=== PATIENT | female | born 1955 | race Caucasian/White ===

== ENCOUNTER 2017-12-18 17:28 | Inpatient (IN) | payer BC ==
[~2017-12-18 17:28] MED LIST: GLYCOPYRROLATE INJ 0.4 MG/2 ML VIAL ONE; LIDOCAINE 2% INJ-PF (20 MG/ML) 2 ML AMPUL ONE; PHENYLEPHRINE HCL INJ/PF 10 MG/1 ML SDV ONE; SUCCINYLCHOLINE CHLORIDE INJ 200 MG/10 ML VIAL ONE
[2017-12-18] MEDS ORDERED: AMPICILLIN SOD/SULBACTAM 3 GM VIAL IV ONE (17:33)
--- NOTE | 2017-12-18 17:33 | ER Document Report ---
ED Extremity Problem, Lower - General Stated Complaint: FALL,ANKLE INJURY Time Seen by Provider: 12/18/17 17:31 Notes: 62-year-old female. Tripped going down stairs. Twisted her ankle. Has a fracture dislocation obvious open fracture of the right ankle. Last food was approximately 2 hours prior to fall. Has been drinking today. Does not smoke. Previous history is consistent with and ovarian cyst. Patient denies any other injuries at this time. Did not fall head over heels simply twisted her ankle and fell down. - HPI Location: Ankle Where: Home Onset/Duration: Sudden Pain Level: 5 Context: Fell, Laceration - Related Data Allergies/Adverse Reactions: No Known Allergies Allergy (Unverified 12/18/17 17:41) Past Medical History - General Information source: Patient - Social History Smoking Status: Never Smoker Frequency of alcohol use: None Drug Abuse: None Lives with: Family Family History: Reviewed & Not Pertinent - Medical History Medical History: Negative Past Surgical History: Reports: Hx Section - Immunizations Immunizations up to date: No Review of Systems - Review of Systems Constitutional: No symptoms reported EENT: No symptoms reported Cardiovascular: No symptoms reported Respiratory: No symptoms reported Gastrointestinal: No symptoms reported Genitourinary: No symptoms reported Female Genitourinary: No symptoms reported Musculoskeletal: See HPI, Joint pain Skin: See HPI, Other - Laceration Hematologic/Lymphatic: No symptoms reported Neurological/Psychological: No symptoms reported Physical Exam - Vital signs Vitals: Pulse Resp BP Pulse Ox 101 H 20 170/80 H 98 12/18/17 17:41 12/18/17 17:41 12/18/17 17:41 12/18/17 17:41 Interpretation: Tachycardic - General General appearance: Appears well, Alert - HEENT Head: Normocephalic, Atraumatic Eyes: Normal Pupils: PERRL - Respiratory Respiratory status: No respiratory distress Chest status: Nontender Breath sounds: Normal Chest palpation: Normal - Cardiovascular Rhythm: Tachycardia Heart sounds: Normal auscultation Murmur: No - Abdominal Inspection: Normal Distension: No distension Bowel sounds: Normal Tenderness: Nontender Organomegaly: No organomegaly - Back Back: Normal, Nontender - Extremities General upper extremity: Normal inspection, Nontender, Normal color, Normal ROM , Normal temperature General lower extremity: Other - Patient has good pulses of the right lower extremity dorsalis pedis and posterior tibialis. There is an obvious 2 cm laceration on the medial aspect of the right ankle with talus pushing underneath the skin. Tenderness medial and laterally as well as posteriorly. Obvious deformity peer. No: Tong's sign - Neurological Neuro grossly intact: Yes Cognition: Normal Orientation: AAOx4 Chayo Coma Scale Eye Opening: Spontaneous Stanton Coma Scale Verbal: Oriented Stanton Coma Scale Motor: Obeys Commands Chayo Coma Scale Total: 15 Speech: Normal Motor strength normal: LUE, RUE, LLE, RLE Sensory: Normal - Psychological Associated symptoms: Normal affect, Normal mood - Skin Skin Temperature: Warm Skin Moisture: Dry Skin Color: Normal Course - Re-evaluation Re-evalutation: 12/18/17 18:58 Laboratory 12/18/17 12/18/17 12/18/17 17:33 17:33 17:33 WBC 12.2 H RBC 4.42 Hgb 13.8 Hct 40.9 MCV 93 MCH 31.3 MCHC 33.8 RDW 12.7 Plt Count 251 Seg Neutrophils % 71.2 Lymphocytes % 20.0 Monocytes % 7.3 Eosinophils % 1.0 Basophils % 0.5 Absolute Neutrophils 8.7 H Absolute Lymphocytes 2.5 Absolute Monocytes 0.9 Absolute Eosinophils 0.1 Absolute Basophils 0.1 PT 13.2 INR 0.94 APTT 25.8 Sodium 143.3 Potassium 4.6 Chloride 102 Carbon Dioxide 26 Anion Gap 15 BUN 14 Creatinine 0.62 Est GFR ( Amer) > 60 Est GFR (Non-Af Amer) > 60 Glucose 119 H Calcium 8.9 Total Bilirubin 0.3 Direct Bilirubin 0.2 Neonat Total Bilirubin Not Reportable Neonat Direct Bilirubin Not Reportable Neonat Indirect Bili Not Reportable AST 38 H ALT 52 Alkaline Phosphatase 86 Total Protein 7.4 Albumin 4.9 Ankle X-Ray 12/18/17 17:32 IMPRESSION: There is evidence of right posterior malleolar and medial malleolar fracture with comminuted fracture distal right fibula. Posterolateral dislocation of the right ankle. Plantar calcaneal bone spur. Patient has open comminuted fracture of the ankle. Consulted Dr. No who will be in to see patient shortly. Patient getting IV pain medication. Patient received antibiotics and tetanus update. IV fluids. Zofran. - Vital Signs Vital signs: Temp Pulse Resp BP Pulse Ox 101 H 20 170/80 H 98 12/18/17 17:41 12/18/17 17:41 12/18/17 17:41 12/18/17 17:41 - Laboratory Result Diagrams: 12/18/17 17:33 12/18/17 17:33 Laboratory results interpreted by me: 12/18/17 12/18/17 17:33 17:33 WBC 12.2 H Absolute Neutrophils 8.7 H Glucose 119 H AST 38 H Discharge - Discharge Clinical Impression: Fracture of ankle, trimalleolar, right, open Qualifiers: Encounter type: initial encounter Open fracture type: open type I or II Qualified Code(s): S82.851B - Displaced trimalleolar fracture of right lower leg , initial encounter for open fracture type I or II Condition: Good Disposition: ADMITTED INPATIENT Unit Admitted: Surgical Floor - Umesh Malhotra Referrals: ALEXA HORN PA-C [Primary Care Provider] - Follow up as needed
[2017-12-18 17:50] LABS: ABSOLUTE BASOPHILS # (AUTO) 0.1 10^3/uL (0.0-0.2); ABSOLUTE EOSINOPHILS # (AUTO) 0.1 10^3/uL (0.0-0.6); ABSOLUTE LYMPHOCYTES (AUTO) 2.5 10^3/uL (0.5-4.7); ABSOLUTE MONOCYTES (AUTO) 0.9 10^3/uL (0.1-1.4); ABSOLUTE NEUT (AUTO) 8.7 10^3/uL (1.7-8.2); BASOPHILS % (AUTO) 0.5 % (0-2); HEMATOCRIT 40.9 % (36.0-47.0); HEMOGLOBIN 13.8 g/dL (12.0-15.5); MEAN CORPUSCULAR HEMOGLOBIN 31.3 pg (27.0-33.4); MEAN CORPUSCULAR HGB CONC 33.8 g/dL (32.0-36.0); MEAN CORPUSCULAR VOLUME 93 fl (80-97); MONOCYTES % (AUTO) 7.3 % (3-13); PLATELET COUNT 251 10^3/uL (150-450); RED BLOOD COUNT 4.42 10^6/uL (3.72-5.28); RED CELL DISTRIBUTION WIDTH 12.7 % (11.5-14.0); SEGMENTED NEUTROPHILS % (AUTO) 71.2 % (42-78); TOTAL CELLS COUNTED % (AUTO) 100 %; WHITE BLOOD COUNT 12.2 10^3/uL (4.0-10.5)
[2017-12-18] MEDS ORDERED: FENTANYL CITRATE INJ/PF 100 MCG/2 ML AMPUL ONE ×2 (18:01→20:02)
--- NOTE | 2017-12-18 18:04 | RADIOLOGY REPORT (SQ) ---
EXAM DESCRIPTION: ANKLE RIGHT AP/LATERAL COMPLETED DATE/TIME: 12/18/2017 5:50 pm REASON FOR STUDY: fall COMPARISON: None. NUMBER OF VIEWS: Three views. TECHNIQUE: AP, lateral, and oblique radiographic images acquired of the right ankle. LIMITATIONS: None. FINDINGS: There is evidence of a comminuted fracture of the distal right fibula with angulation conv ex anteriorly at the fracture site and overlap proximal distal fracture fragments. There is evidence of a fracture of the right lateral malleolus and posterior malleolus with posterolateral dislocation of right ankle. Enthesophyte for Achilles attachment. Plantar calcaneal bone spur. IMPRESSION: There is evidence of right posterior malleolar and medial malleolar fracture with commin uted fracture distal right fibula. Posterolateral dislocation of the right ankle. Plantar calcaneal bone spur. TECHNICAL DOCUMENTATION: JOB ID: [id number] [employer]- All Rights Reserved Reading location - IP/workstation name: [email or web address]
[2017-12-18] MEDS ORDERED: FENTANYL CITRATE INJ/PF 100 MCG/2 ML AMPUL IV ONE (18:08)
[2017-12-18 18:12] LABS: ALANINE AMINOTRANSFERASE 52 U/L (9-52); ALBUMIN 4.9 g/dL (3.5-5.0); ALKALINE PHOSPHATASE 86 U/L (38-126); ANION GAP 15 (5-19); ASPARTATE AMINO TRANSFERASE 38 U/L (14-36); BILIRUBIN,DIRECT 0.2 mg/dL (0.0-0.4); BILIRUBIN,TOTAL 0.3 mg/dL (0.2-1.3); BLOOD UREA NITROGEN 14 mg/dL (7-20); CALCIUM 8.9 mg/dL (8.4-10.2); CARBON DIOXIDE 26 mmol/L (22-30); CHLORIDE 102 mmol/L (98-107); GLUCOSE 119 mg/dL (75-110); INTERNATIONAL RATION (INR) 0.94; PARTIAL THROMBOPLASTIN TIME 25.8 SEC (23.5-35.8); POTASSIUM 4.6 mmol/L (3.6-5.0); PROTHROMBIN TIME 13.2 SEC (11.4-15.4); SODIUM 143.3 mmol/L (137-145); TOTAL PROTEIN 7.4 g/dL (6.3-8.2)
[2017-12-18] MEDS ORDERED: DIPH/PERTUSS(ACELL)/TETANUS VAC/PF 0.5 ML SYR (>=10YO) IM ONE (18:54)
[2017-12-18] MEDS ORDERED: NORMAL SALINE 1000 ML 1,000 ML IV ONE (18:56)
[2017-12-18] MEDS ORDERED: ONDANSETRON HCL INJ/PF 4 MG/2 ML SDV IV ONE (18:56)
[2017-12-18] MEDS ORDERED: FENTANYL CITRATE INJ/PF 100 MCG/2 ML AMPUL IV SCH (19:00)
--- NOTE | 2017-12-18 19:43 | PDOC H&P ---
History of Present Illness Admission Date/PCP: ALEXA HORN PA-C Patient complains of: Right ankle injury History of Present Illness: DARRYL DUVALL is a 62 year old female who tripped going downstairs. Patient had notable deformity of her right lower extremity with an open wound. She was brought to the emergency room where x-rays demonstrated open fracture dislocation of the ankle. Patient immediately received antibiotics the wound was cleansed and a soft wet-to-dry dressing placed. Patient states her pain has improved after pain medication but has considerable pain with any attempted motion. Notes tingling along the tips of the toes. Pain 5/5. Past Medical History Psychiatric Medical History: Reports: Depression Past Surgical History Past Surgical History: Reports: Section Social History Lives with: Family Smoking Status: Never Smoker Family History Family History: Reviewed & Not Pertinent Parental Family History Reviewed: No Children Family History Reviewed: No Sibling(s) Family History Reviewed.: No Medication/Allergy Allergies/Adverse Reactions: No Known Allergies Allergy (Unverified 12/18/17 17:41) Review of Systems Constitutional: ABSENT: chills, fever(s), headache(s), weight gain, weight loss Eyes: ABSENT: visual disturbances Ears: ABSENT: hearing changes Nose, Mouth, and Throat: PRESENT: other - History of allergies Cardiovascular: ABSENT: chest pain, dyspnea on exertion, edema, orthropnea, palpitations Respiratory: ABSENT: cough, hemoptysis Gastrointestinal: ABSENT: abdominal pain, constipation, diarrhea, hematemesis, hematochezia, nausea, vomiting Genitourinary: ABSENT: dysuria, hematuria Musculoskeletal: PRESENT: as per HPI Integumentary: ABSENT: rash, wounds Neurological: ABSENT: abnormal gait, abnormal speech, confusion, dizziness, focal weakness, syncope Psychiatric: ABSENT: anxiety, depression, homidical ideation, suicidal ideation Endocrine: ABSENT: cold intolerance, heat intolerance, menstrual abnormalities, polydipsia, polyuria Hematologic/Lymphatic: ABSENT: easy bleeding, easy bruising, lymphadenopathy Physical Exam Vital Signs: Temp Pulse Resp BP Pulse Ox 101 H 20 170/80 H 98 12/18/17 17:41 12/18/17 17:41 12/18/17 17:41 12/18/17 17:41 Intake & Output 12/17/17 12/18/17 12/19/17 06:59 06:59 06:59 Weight 79.1 kg General appearance: PRESENT: no acute distress, well-developed, well-nourished Head exam: PRESENT: atraumatic, normocephalic Eye exam: PRESENT: conjunctiva pink, EOMI, PERRLA. ABSENT: scleral icterus Ear exam: PRESENT: normal external ear exam Mouth exam: PRESENT: moist, tongue midline Neck exam: PRESENT: full ROM. ABSENT: carotid bruit, JVD, lymphadenopathy, thyromegaly Cardiovascular exam: PRESENT: RRR. ABSENT: diastolic murmur, rubs, systolic murmur Pulses: PRESENT: normal dorsalis pedis pul, +2 pedal pulses bilateral Vascular exam: PRESENT: normal capillary refill GI/Abdominal exam: PRESENT: normal bowel sounds, soft. ABSENT: distended, guarding, mass, organolmegaly, rebound, tenderness Rectal exam: PRESENT: deferred Musculoskeletal exam: PRESENT: other - Right ankle: Exposed bone medially with 6 cm transverse laceration. No gross contamination. Dorsalis pedis pulse one plus. Cap refill less than 2 seconds. Hypoesthesia along the dorsum of the foot. Intact flexion extension of the toes. Neurological exam: PRESENT: alert, awake, oriented to person, oriented to place , oriented to time, oriented to situation, CN II-XII grossly intact. ABSENT: motor sensory deficit Psychiatric exam: PRESENT: appropriate affect, normal mood. ABSENT: homicidal ideation, suicidal ideation Skin exam: PRESENT: dry, intact, warm. ABSENT: cyanosis, rash Results Laboratory Results: 12/18/17 17:33 12/18/17 17:33 12/18/17 12/18/17 17:33 17:33 WBC 12.2 H RBC 4.42 Hgb 13.8 Hct 40.9 MCV 93 MCH 31.3 MCHC 33.8 RDW 12.7 Plt Count 251 Seg Neutrophils % 71.2 Lymphocytes % 20.0 Monocytes % 7.3 Eosinophils % 1.0 Basophils % 0.5 Absolute Neutrophils 8.7 H Absolute Lymphocytes 2.5 Absolute Monocytes 0.9 Absolute Eosinophils 0.1 Absolute Basophils 0.1 Sodium 143.3 Potassium 4.6 Chloride 102 Carbon Dioxide 26 Anion Gap 15 BUN 14 Creatinine 0.62 Est GFR ( Amer) > 60 Est GFR (Non-Af Amer) > 60 Glucose 119 H Calcium 8.9 Total Bilirubin 0.3 AST 38 H ALT 52 Alkaline Phosphatase 86 Total Protein 7.4 Albumin 4.9 Impressions: Ankle X-Ray 12/18/17 17:32 IMPRESSION: There is evidence of right posterior malleolar and medial malleolar fracture with comminuted fracture distal right fibula. Posterolateral dislocation of the right ankle. Plantar calcaneal bone spur. Status: Image reviewed by me - I have reviewed patient's radiographs demonstrate trimalleolar fracture dislocation of the right ankle with small medial malleolar fragment and distal fibula fracture. Assessment & Plan - Diagnosis (1) Fracture of ankle, trimalleolar, right, open Qualifiers: Encounter type: initial encounter Open fracture type: open type I or II Qualified Code(s): S82.851B - Displaced trimalleolar fracture of right lower leg , initial encounter for open fracture type I or II Is this a current diagnosis for this admission?: Yes Plan: Patient sustained a grade II open fracture dislocation of her ankle. Today we discussed treatment options I recommended urgent operative intervention which includes irrigation and debridement of the right ankle with open reduction internal fixation versus placement of external fixator. Risks and benefits of the surgical procedure have been explained to the patient specific risks including infection which patient is high risk given the open nature, posttraumatic arthritis, postoperative pain, neurovascular injury and need for future surgical intervention. Risks and benefits have been explained, patient has verbalized understanding consented for the procedure. Patient will be admitted for 72 hours and received IV antibiotics. Pending intraoperative findings will proceed with open reduction internal fixation versus external fixator. Patient understands if external fixator is placed she will require future surgical intervention for definitive fixation.
[2017-12-18] MEDS ORDERED: MIDAZOLAM 2 MG/2 ML INJ ONE (20:02)
[2017-12-18] MEDS ORDERED: ACETAMINOPHEN 100 ML IV ONE (20:03)
[2017-12-18] MEDS ORDERED: PROPOFOL INJ 200 MG/20 ML VIAL IV ONE (20:03)
[2017-12-18] MEDS ORDERED: EPHEDRINE SULFATE INJ 50 MG/1 ML AMPULE ONE (21:12)
[2017-12-18] MEDS ORDERED: BUPIVACAINE HCL 0.5 % INJ/PF 30 ML SDV ONE (21:32)
[2017-12-18] MEDS ORDERED: BACITRACIN INJ 50,000 UNIT VIAL ONE (21:34)
[2017-12-18] MEDS ORDERED: FENTANYL CITRATE INJ/PF 100 MCG/2 ML AMPUL IV PRN ×3 (21:39)
[2017-12-18] MEDS ORDERED: DIPHENHYDRAMINE HCL 50 MG/ML VIAL IV PRN (21:39)
[2017-12-18] MEDS ORDERED: PROMETHAZINE HCL INJ 25 MG/1 ML VIAL IV PRN (21:39)
[2017-12-18] MEDS ORDERED: MORPHINE SULFATE 10 MG/ML INJ ONE (21:53)
--- NOTE | 2017-12-18 22:07 | EKG REPORT ---
SEVERITY:- ABNORMAL ECG - SINUS TACHYCARDIA VENTRICULAR TRIGEMINY LEFT AXIS DEVIATION MINIMAL ST DEPRESSION : Confirmed by: Ray Herring MD 18-Dec-2017 22:06:52
[2017-12-18] MEDS ORDERED: RINGERS SOLUTION,LACTATED 1,000 ML IV PRN (22:12)
[2017-12-18] MEDS ORDERED: MAG HYDROX/AL HYDROX/SIMETH SUSP 30 ML UDCUP PO PRN (22:12)
--- NOTE | 2017-12-18 22:37 | RADIOLOGY REPORT (SQ) ---
EXAM DESCRIPTION: ANKLE RIGHT COMPLETE COMPLETED DATE/TIME: 12/18/2017 10:01 pm REASON FOR STUDY: ORIF RT ANKLE FX COMPARISON: 12/18/2017 FLUOROSCOPY TIME: 1.0 minutes 7 images saved to PACS. TECHNIQUE: Intra-operative images acquired during surgical procedure to evaluate progress. NUMBER OF IMAGES: 7 LIMITATIONS: None. FINDINGS: Multiple fluoroscopic spot images of the ankle demonstrate surgical changes consistent wit h open reduction, internal fixation of previously diagnosed right ankle fractures. Images are submit long for administrative purposes only. Please refer to the operative report for full details regardin g this surgery. IMPRESSION: IMAGE(S) OBTAINED DURING PROCEDURE. COMMENT: Quality ID [id number]: Final reports for procedures using fluoroscopy that document radiation exp osure indices, or exposure time and number of fluorographic images (if radiation exposure indices are not available) Please consult full operative report of the attending physician for description of the procedure. TECHNICAL DOCUMENTATION: JOB ID: [id number] [employer] All Rights Reserved Reading location - IP/workstation name: [email or web address]
--- NOTE | 2017-12-18 22:37 | Operative Report ---
Operative Report DATE OF SURGERY: 12/18/17 PREOPERATIVE DIAGNOSIS: Right fracture dislocation trimalleolar ankle fracture grade II open POSTOPERATIVE DIAGNOSIS: Same OPERATION: Irrigation and debridement grade II open fracture dislocation right ankle. Open reduction internal fixation medial/lateral malleoli. Syndesmotic fixation right ankle SURGEON: CELINA MATTHEW ANESTHESIA: GA COMPLICATIONS: None ESTIMATED BLOOD LOSS: Minimal PROCEDURE: Indication for above procedure: 62-year-old female who sustained a fall down her steps. She had a notable deformity with open wound. She was brought to the emergency room where she was found to have a open fracture dislocation of her ankle. Patient received antibiotics in the emergency room the wound was cleansed and a wet-to-dry dressing placed. I discussed treatment options with the patient given the severity of her injury decision was made to proceed with operative intervention which included ORIF versus external fixation. All questions were answered risks and benefits were explained patient verbalized understanding consented for the procedure. Procedure In Detail: Patient was seen and evaluated in the preoperative holding area. The RIGHT lower extremity was initialized and marked. Patient received Unasyn for bacterial prophylaxis in the emergency room. Patient was taken back to the operative room where transferred to the operative table and placed under general anesthesia. Once they were adequately anesthetized a nonsterile tourniquet was placed on the lower extremity. A surgical team debriefing was performed ensuring all instrumentation was available, the surgical procedure was discussed with possible concerns reviewed. I prescribed with Betadine was performed to the lower extremity. The lower extremity was prepped with chlorhexidine and alcohol and draped in a sterile fashion. A timeout was done identifying correct patient, procedure and extremity everyone in attendance agree with this and verbalized no concerns. The extremity was exsanguinated the tourniquet was inflated to 300 mmHg. Medial wound was then irrigated with pulse lavage bacitracin and then gravity irrigation. Exploration demonstrated exposed cancellus bone of the medial malleolus medial malleolar fragment was approximately 1 cm x 1 cm. The skin edges were then debrided any necrotic or nonviable skin removed. The exposed tibia was then curetted and any nonviable bone excised. Given the acuity of patient's injury, minimal swelling and no evidence of comorbidities decision was made to proceed with definitive fixation. Longitudinal skin incision was made along the lateral malleolus/distal fibula blunt dissection was performed proximally and the superficial peroneal nerve was identified and protected. I then carefully elevated soft tissue from the fracture site. The fracture was then reduced under direct visualization. Interfragmentary screw was placed obtaining good interfragmentary compression. A [place] one third tubular plate was then secured proximally and distally C arm fluoroscopy demonstrated [place] of fibular length and appropriate placement of the plate. I then completed plate fixation and distally. A cotton test was then performed which demonstrated tibia-fibula clear space widening thus decision was made to proceed with syndesmotic fixation. Aiming from a posterior to anterior direction at 45 I placed a 3.5 mm fully threaded cortex screw while maintaining syndesmotic reduction. A second 3.5 mm fully threaded cortex screw was placed to provide further stability. No syndesmotic screws obtained 4 cortices of fixation. There is no evidence of syndesmotic widening and a negative cotton test after syndesmotic fixation. C- arm fluoroscopy was obtained confirming reduction of the syndesmosis and adequate placement of the syndesmotic screws coplanar with the fibula and tibia. Given the size of patient's small medial malleolar fragment I decided to proceed with single screw fixation I do not feel tension band fixation was an appropriate choice given patient's open wound and possibly higher risk of hardware infection. The small medial malleolar fragment was then held reduced and secured with 2 threaded K wire. I then placed a partially threaded 4.0 mm interfragmentary screw was provided optimal fixation of the fragment. Once fixation was complete there is no evidence of tibia-fibula clear space widening or medial space widening with external rotation or cotton test. No evidence of joint subluxation throughout range of motion. The wounds were once again copiously irrigated with normal saline. Medial wound was closed with interrupted 3-0 nylon suture small area was left open. Subcutaneous tissues were closed laterally with 3-0 Vicryl suture. Skin was closed with tino. 20 cc of 0.5% Marcaine without epinephrine was injected for postoperative pain control. Patient was placed in a posterior plaster splint maintaining neutral dorsiflexion. Tourniquet was then deflated. Patient had good peripheral perfusion of her digits. Sponge counts, instrument counts, needle counts counts were correct. Patient was then awoken from anesthesia. Transferred from the operating room table to the operating room stretcher. There was no intraoperative complications patient tolerated procedure well stable to PACU. Postoperative plan: Patient will be admitted for 72 hours of IV antibiotics given the open fracture. She was started on Xarelto for DVT prophylaxis. Will maintain nonweightbearing for 3 months given syndesmotic fixation will discuss possible hardware removal 3 months postoperative. Patient will follow-up in 1 week for wound check and likely transition to a pneumatic walking boot.
[2017-12-19] MEDS ORDERED: CEFAZOLIN INJ 1 GM VIAL ONE (00:24)
[2017-12-19] MEDS ORDERED: ACETAMINOPHEN 100 ML IV ONE ×2 (00:28→05:27)
[2017-12-19] MEDS: CEFAZOLIN 2 GM/D5W RTU 2 GM/50 ML RTUPB IV SCH ×4 (00:47→17:23)
[2017-12-19] MEDS: FENTANYL CITRATE INJ/PF 100 MCG/2 ML AMPUL IV PRN ×3 (01:39→09:38)
[2017-12-19 04:40] LABS: CREATINE KINASE MB 1.24 ng/mL (<4.55); TROPONIN I < 0.012 ng/mL
[2017-12-19] MEDS: LANSOPRAZOLE 30 MG TAB.RAP.DR PO SCH (06:37)
--- NOTE | 2017-12-19 07:02 | PDOC CONSULTATION ---
Consultation Consult Date: 12/19/17 Attending physician:: ROSSY LOBO Consult reason:: PVCs History of Present Illness Admission Date/PCP: 12/18/17 19:52 ALEXA HORN PA-C History of Present Illness: DARRYL DUVALL is a 62 year old female who tripped going downstairs. In the OR she is noted to have PVCs. Patient had notable deformity of her right lower extremity with an open wound. She was brought to the emergency room where x-rays demonstrated open fracture dislocation of the ankle. Patient immediately received antibiotics the wound was cleansed and a soft wet-to-dry dressing placed. Patient states her pain has improved after pain medication but has considerable pain with any attempted motion. Notes tingling along the tips of the toes. Pain 5/5. Past Medical History GI Medical History: Reports: Gastroesophageal Reflux Disease Past Surgical History Past Surgical History: Reports: Section Social History Information Source: [facility] Records Lives with: Family Smoking Status: Former Smoker Last Time Smoked: 1985 Frequency of Alcohol Use: Heavy Hx Recreational Drug Use: No Hx Prescription Drug Abuse: No - Advance Directive Resuscitation Status: Full Code Family History Family History: Reviewed & Not Pertinent Parental Family History Reviewed: No Children Family History Reviewed: No Sibling(s) Family History Reviewed.: No Medication/Allergy Home Medications: Citalopram Hydrobromide [Celexa 20 mg Tablet] 20 mg PO DAILY 12/18/17 Clindamycin HCl 300 mg PO Q8 #21 capsule 12/18/17 Esomeprazole Magnesium [Nexium 24Hr] 20 mg PO DAILY 12/18/17 Mv,Calcium,Min/Iron/Folic/Vitk [Multi For Her Tablet] 1 tab PO DAILY 12/18/17 Oxycodone HCl/Acetaminophen [Percocet 7.5-325 mg Tablet] 1 - 2 tab PO ASDIR PRN #40 tab 12/18/17 Rivaroxaban [Xarelto 10 mg Tablet] 10 mg PO QHS #17 tablet 12/18/17 Allergies/Adverse Reactions: No Known Allergies Allergy (Unverified 12/18/17 17:41) Physical Exam Vital Signs: Temp Pulse Resp BP Pulse Ox 99.0 F 101 H 16 125/69 96 12/19/17 03:28 12/19/17 03:28 12/19/17 03:28 12/19/17 03:28 12/19/17 03:28 Intake & Output 12/17/17 12/18/17 12/19/17 11:59 11:59 11:59 Intake Total 4898 Output Total 3220 Balance 1678 Results Laboratory Results: 12/19/17 00:30 Magnesium 1.7 12/19/17 12/19/17 00:30 00:30 Creatine Kinase 146 H CK-MB (CK-2) 1.24 Troponin I < 0.012 Impressions: Ankle X-Ray 12/18/17 17:32 IMPRESSION: There is evidence of right posterior malleolar and medial malleolar fracture with comminuted fracture distal right fibula. Posterolateral dislocation of the right ankle. Plantar calcaneal bone spur. Assessment & Plan - Diagnosis (1) PVCs (premature ventricular contractions) Is this a current diagnosis for this admission?: Yes Plan: PVCs noted in the OR, reevaluation of her EKG reveal PVCs occurring with trigeminy which is benign. Evaluation of cardiac enzymes and electrolytes are unremarkable. Benign condition, no further workup. Thank you for the opportunity. - Time Time Spent: 30 to 50 Minutes
[2017-12-19 07:57] LABS: HEMATOCRIT 33.7 % (36.0-47.0); MEAN CORPUSCULAR HEMOGLOBIN 31.4 pg (27.0-33.4); MEAN CORPUSCULAR VOLUME 92 fl (80-97); PLATELET COUNT 189 10^3/uL (150-450); RED BLOOD COUNT 3.65 10^6/uL (3.72-5.28); RED CELL DISTRIBUTION WIDTH 12.6 % (11.5-14.0); WHITE BLOOD COUNT 12.1 10^3/uL (4.0-10.5)
[2017-12-19 08:20] LABS: HEMOGLOBIN 11.5 g/dL (12.0-15.5)
[2017-12-19 08:22] LABS: ANION GAP 9 (5-19); BLOOD UREA NITROGEN 10 mg/dL (7-20); CALCIUM 8.1 mg/dL (8.4-10.2); CARBON DIOXIDE 27 mmol/L (22-30); CHLORIDE 102 mmol/L (98-107); CREATINE KINASE 244 U/L (30-135); GLUCOSE 90 mg/dL (75-110); POTASSIUM 4.4 mmol/L (3.6-5.0); SODIUM 138.3 mmol/L (137-145)
[2017-12-19 08:37] LABS: TROPONIN I < 0.012 ng/mL
--- NOTE | 2017-12-19 09:26 | EKG REPORT ---
SEVERITY:- OTHERWISE NORMAL ECG - SINUS TACHYCARDIA LEFT AXIS DEVIATION : Confirmed by: Ray Herring MD 19-Dec-2017 09:26:22
[2017-12-19] MEDS: PREGABALIN 75 MG CAPSULE PO SCH ×2 (09:39→17:17)
[2017-12-19] MEDS: SENNOSIDES/DOCUSATE 8.6-50 MG 1 EACH TABLET PO SCH ×2 (09:39→17:18)
[2017-12-19] MEDS: PRENATAL VITAMIN W DHA CAPSULE PO SCH (09:40)
--- NOTE | 2017-12-19 10:55 | PDOC PROGRESS REPORT ---
Subjective Progress Note for:: 12/19/17 Subjective:: 62-year-old white female postop day 0 open reduction internal fixation right open trimalleolar ankle fracture dislocation. Patient lying comfortably in hospital bed this morning with right lower extremity elevated on multiple pillows. Her postoperative dressing is clean dry and intact. She reports it feels "tight". Denies tingling or numbness at this time and notes she is still in pain. Reason For Visit: RIGHT OPEN RIMALLEOLAR ANKLE FRACTURE Physical Exam Vital Signs: Temp Pulse Resp BP Pulse Ox 37.2 C 83 16 144/68 H 95 12/19/17 08:22 12/19/17 08:22 12/19/17 08:22 12/19/17 08:22 12/19/17 08:22 Intake & Output 12/18/17 12/19/17 12/20/17 06:59 06:59 06:59 Intake Total 5573 Output Total 4120 Balance 1453 General appearance: PRESENT: no acute distress, well-developed, well-nourished Head exam: PRESENT: atraumatic, normocephalic Eye exam: PRESENT: EOMI Mouth exam: PRESENT: moist Respiratory exam: PRESENT: unlabored Pulses: PRESENT: normal dorsalis pedis pul, +2 pedal pulses bilateral Vascular exam: PRESENT: normal capillary refill Additional comments: Patient lying recumbent in hospital bed with right lower extremity elevated on multiple pillows. Her postoperative compression dressing and splint are clean dry and intact. These are left in place. She is nontender to palpation however notes pain with initiation of motion. She denies tingling and numbness. She has less than 2 seconds capillary refill to toes on foot of right lower extremity with moderate pedal edema. No sensory motor deficits. Additional comments: Patient has not yet worked with physical therapy services however she will maintain a nonweightbearing status on right lower extremity. She will work with physical therapy throughout her stay in the hospital to work towards ambulation with nonweightbearing status on right lower extremity and transfers from bed to chair at the bedside. Neurological exam: PRESENT: alert, awake, oriented to person, oriented to place , oriented to time, oriented to situation, CN II-XII grossly intact. ABSENT: motor sensory deficit Psychiatric exam: PRESENT: appropriate affect, normal mood. ABSENT: homicidal ideation, suicidal ideation Skin exam: PRESENT: dry, intact, warm. ABSENT: cyanosis, rash Results Laboratory Results: 12/19/17 06:40 12/19/17 06:40 12/19/17 12/19/17 12/19/17 00:30 06:40 06:40 WBC 12.1 H RBC 3.65 L Hgb 11.5 L D Hct 33.7 L MCV 92 MCH 31.4 MCHC 34.0 RDW 12.6 Plt Count 189 Sodium 138.3 Potassium 4.4 Chloride 102 Carbon Dioxide 27 Anion Gap 9 BUN 10 Creatinine 0.61 Est GFR ( Amer) > 60 Est GFR (Non-Af Amer) > 60 Glucose 90 Calcium 8.1 L Magnesium 1.7 12/19/17 12/19/17 12/19/17 00:30 00:30 06:40 Creatine Kinase 146 H 244 H CK-MB (CK-2) 1.24 Troponin I < 0.012 12/19/17 06:40 Creatine Kinase CK-MB (CK-2) 1.70 Troponin I < 0.012 Impressions: Ankle X-Ray 12/18/17 17:32 IMPRESSION: There is evidence of right posterior malleolar and medial malleolar fracture with comminuted fracture distal right fibula. Posterolateral dislocation of the right ankle. Plantar calcaneal bone spur. Assessment & Plan - Diagnosis (1) Fracture of ankle, trimalleolar, right, open Qualifiers: Encounter type: initial encounter Open fracture type: open type I or II Qualified Code(s): S82.851B - Displaced trimalleolar fracture of right lower leg , initial encounter for open fracture type I or II Is this a current diagnosis for this admission?: Yes Plan: 62-year-old white female postop day 0 from open reduction internal fixation right open trimalleolar fracture with dislocation. Patient has been having trouble with pain control. She notes the fentanyl is not alleviating her pain. Therefore an order was placed for 2 mg IV morphine every 2 hours as needed for pain if fentanyl continues to have no effect on pain. Patient's nurses were informed of this change. Otherwise patient has no sensory or motor deficits in postop splint and dressing are clean dry and intact. We will otherwise continue: 1. DVT prophylaxis 2. Analgesic medication 3. Physical therapy (2) PVCs (premature ventricular contractions) Is this a current diagnosis for this admission?: Yes Plan: Initial concern intraoperatively and postoperatively for multiple PVCs. Further workup was ordered by hospitalist service and determined the this was a regularly irregular rhythm of PVCs with trigeminy. A full cardiac workup was ordered however enzymes and electrolytes were negative for cardiac injury or ischemia. No need for intervention at this time she will continue to be monitored by hospitalist service.
[2017-12-19] MEDS: OXYCODONE HCL SR 10 MG TABLET PO SCH ×2 (11:14→22:54)
[2017-12-19] MEDS: MORPHINE SULFATE 10 MG/ML INJ IV PRN ×2 (11:18→13:40)
[2017-12-19] MEDS: OXYCODONE HCL IR 5 MG TABLET PO PRN (12:54)
[2017-12-19 13:55] LABS: CREATINE KINASE MB 1.39 ng/mL (<4.55)
[2017-12-19 13:56] LABS: TROPONIN I < 0.012 ng/mL
[2017-12-19] MEDS: ACETAMINOPHEN 325 MG TABLET PO PRN (17:16)
[2017-12-19] MEDS: ONDANSETRON HCL INJ/PF 4 MG/2 ML SDV IV PRN (17:24)
[2017-12-19] MEDS ORDERED: CITALOPRAM HYDROBROMIDE 20 MG TABLET PO ONE (17:30)
[2017-12-19] MEDS: RIVAROXABAN 10 MG TABLET PO SCH (22:54)
[2017-12-20] MEDS: CEFAZOLIN 2 GM/D5W RTU 2 GM/50 ML RTUPB IV SCH ×5 (00:27→23:46)
[2017-12-20] MEDS: MORPHINE SULFATE 10 MG/ML INJ IV PRN ×3 (00:27→08:25)
[2017-12-20] MEDS: OXYCODONE HCL IR 5 MG TABLET PO PRN (06:07)
[2017-12-20] MEDS: LANSOPRAZOLE 30 MG TAB.RAP.DR PO SCH (06:07)
[2017-12-20 06:43] LABS: HEMATOCRIT 35.1 % (36.0-47.0); HEMOGLOBIN 11.8 g/dL (12.0-15.5); MEAN CORPUSCULAR HEMOGLOBIN 31.1 pg (27.0-33.4); MEAN CORPUSCULAR HGB CONC 33.7 g/dL (32.0-36.0); MEAN CORPUSCULAR VOLUME 92 fl (80-97); PLATELET COUNT 186 10^3/uL (150-450); RED CELL DISTRIBUTION WIDTH 12.8 % (11.5-14.0); WHITE BLOOD COUNT 11.8 10^3/uL (4.0-10.5)
[2017-12-20] MEDS: ACETAMINOPHEN 325 MG TABLET PO PRN ×2 (08:25→19:13)
[2017-12-20] MEDS: ONDANSETRON HCL INJ/PF 4 MG/2 ML SDV IV PRN (08:25)
--- NOTE | 2017-12-20 09:50 | PDOC PROGRESS REPORT ---
Subjective Progress Note for:: 12/20/17 Subjective:: Patient out of bed to the chair today. States pain has improved but continues to have considerable soreness. Denies fever chills or sweats. Reason For Visit: RIGHT OPEN RIMALLEOLAR ANKLE FRACTURE Physical Exam Vital Signs: Temp Pulse Resp BP Pulse Ox 102.8 F H 106 H 17 126/67 H 97 12/20/17 07:19 12/20/17 07:19 12/20/17 07:19 12/20/17 07:19 12/20/17 07:19 Intake & Output 12/19/17 12/20/17 12/21/17 06:59 06:59 06:59 Intake Total 5515 3190 Output Total 4122 6665 Balance 1453 -435 Musculoskeletal exam: PRESENT: other - Right lower extremity: Splint intact. Intact flexion extension of the toes. Cap refill less than 2 seconds. Intact sensation. Results Laboratory Results: 12/20/17 06:12 12/19/17 06:40 12/20/17 06:12 WBC 11.8 H RBC 3.80 Hgb 11.8 L Hct 35.1 L MCV 92 MCH 31.1 MCHC 33.7 RDW 12.8 Plt Count 186 12/19/17 12/19/17 12/19/17 00:30 00:30 06:40 Creatine Kinase 146 H 244 H CK-MB (CK-2) 1.24 Troponin I < 0.012 12/19/17 12/19/17 12/19/17 06:40 12:47 12:47 Creatine Kinase 228 H CK-MB (CK-2) 1.70 1.39 Troponin I < 0.012 < 0.012 Impressions: Ankle X-Ray 12/18/17 17:32 IMPRESSION: There is evidence of right posterior malleolar and medial malleolar fracture with comminuted fracture distal right fibula. Posterolateral dislocation of the right ankle. Plantar calcaneal bone spur. Assessment & Plan - Diagnosis (1) Fracture of ankle, trimalleolar, right, open Qualifiers: Encounter type: initial encounter Open fracture type: open type I or II Qualified Code(s): S82.851B - Displaced trimalleolar fracture of right lower leg , initial encounter for open fracture type I or II Is this a current diagnosis for this admission?: Yes Plan: Postop day #2 status post irrigation debridement with ORIF right ankle fracture #1 physical therapy nonweightbearing #2 pain control #3 Xarelto for DVT prophylaxis #4 discharge planning anticipate discharge home tomorrow.
[2017-12-20] MEDS: CITALOPRAM HYDROBROMIDE 20 MG TABLET PO SCH (11:58)
[2017-12-20] MEDS: PREGABALIN 75 MG CAPSULE PO SCH ×2 (11:58→18:40)
[2017-12-20] MEDS: SENNOSIDES/DOCUSATE 8.6-50 MG 1 EACH TABLET PO SCH ×2 (11:58→18:40)
[2017-12-20] MEDS: OXYCODONE HCL SR 10 MG TABLET PO SCH ×2 (11:58→22:16)
[2017-12-20] MEDS: PRENATAL VITAMIN W DHA CAPSULE PO SCH (11:59)
[2017-12-20] MEDS: RIVAROXABAN 10 MG TABLET PO SCH (22:16)
[2017-12-21 05:41] LABS: HEMATOCRIT 30.3 % (36.0-47.0); HEMOGLOBIN 10.3 g/dL (12.0-15.5); MEAN CORPUSCULAR HEMOGLOBIN 31.8 pg (27.0-33.4); MEAN CORPUSCULAR HGB CONC 34.2 g/dL (32.0-36.0); MEAN CORPUSCULAR VOLUME 93 fl (80-97); PLATELET COUNT 131 10^3/uL (150-450); RED BLOOD COUNT 3.25 10^6/uL (3.72-5.28); RED CELL DISTRIBUTION WIDTH 12.4 % (11.5-14.0); WHITE BLOOD COUNT 8.9 10^3/uL (4.0-10.5)
[2017-12-21] MEDS: LANSOPRAZOLE 30 MG TAB.RAP.DR PO SCH (07:00)
[2017-12-21] MEDS: CEFAZOLIN 2 GM/D5W RTU 2 GM/50 ML RTUPB IV SCH (07:00)
[2017-12-21] MEDS: OXYCODONE HCL IR 5 MG TABLET PO PRN (08:07)
[2017-12-21] MEDS: ACETAMINOPHEN 325 MG TABLET PO PRN (08:08)
--- NOTE | 2017-12-21 08:13 | PDOC DISCHARGE SUMMARY ---
General - Admit/Disc Date/PCP Admission Date/Primary Care Provider: 12/18/17 19:52 ALEXA HORN PA-C Discharge Date: 12/21/17 - Discharge Diagnosis (1) Fracture of ankle, trimalleolar, right, open Is this a current diagnosis for this admission?: Yes - Additional Information Resuscitation Status: Full Code Discharge Diet: As Tolerated Discharge Activity: Balance Activity w/Rest, No Lifting Over 10 Pounds, No Lifting/Push/Pulling Home Medications: Alprazolam [Xanax 0.25 mg Tablet] 0.25 mg PO DAILYP PRN 12/19/17 Citalopram Hydrobromide [Celexa 20 mg Tablet] 20 mg PO DAILY 12/19/17 Esomeprazole Magnesium [Nexium] 20 mg PO Q6AM 12/19/17 Multivitamin [Multiple Vitamins] 1 each PO DAILY 12/19/17 History of Present Illness Patient complains of: Right ankle injury History of Present Illness: DARRYL DUVALL is a 62 year old female who tripped going downstairs. Patient had notable deformity of her right lower extremity with an open wound. She was brought to the emergency room where x-rays demonstrated open fracture dislocation of the ankle. Patient immediately received antibiotics the wound was cleansed and a soft wet-to-dry dressing placed. Patient states her pain has improved after pain medication but has considerable pain with any attempted motion. Notes tingling along the tips of the toes. Pain 5/5. Hospital Course Hospital Course: Patient was admitted to the orthopedic service on 12/18/17 and underwent emergent operative intervention of her open fracture dislocation on 12/18/17. Patient had been doing well postoperatively did have intermittent fevers which have improved. White count has been trending is currently normal at 8.9. The patient denies chest pain shortness breath nausea vomiting or diarrhea. She has been undergoing physical therapy with improvement. Throughout the patient' s hospital course she has progressed appropriately. Patient has received 72 hours of IV antibiotics and thus on 12/21/17 patient is stable for discharge. Physical Exam Vital Signs: Temp Pulse Resp BP Pulse Ox 99.0 F 92 14 119/62 92 12/21/17 04:00 12/21/17 04:00 12/21/17 04:00 12/21/17 04:00 12/21/17 04:00 Intake & Output 12/20/17 12/21/17 12/22/17 06:59 06:59 06:59 Intake Total 3190 1839 Output Total 3625 1250 Balance -435 589 General appearance: PRESENT: no acute distress, well-developed, well-nourished Head exam: PRESENT: atraumatic, normocephalic Eye exam: PRESENT: conjunctiva pink, EOMI, PERRLA. ABSENT: scleral icterus Ear exam: PRESENT: normal external ear exam Mouth exam: PRESENT: moist, tongue midline Neck exam: PRESENT: full ROM. ABSENT: carotid bruit, JVD, lymphadenopathy, thyromegaly Cardiovascular exam: PRESENT: RRR. ABSENT: diastolic murmur, rubs, systolic murmur Pulses: PRESENT: normal dorsalis pedis pul, +2 pedal pulses bilateral Vascular exam: PRESENT: normal capillary refill GI/Abdominal exam: PRESENT: normal bowel sounds, soft. ABSENT: distended, guarding, mass, organolmegaly, rebound, tenderness Rectal exam: PRESENT: deferred Musculoskeletal exam: PRESENT: other - Right lower extremity: Splint clean/dry/ intact no erythema or drainage. No pain with passive stretch. Cap refill less than 2 seconds. Intact flexion/extension of the toes. Neurological exam: PRESENT: alert, awake, oriented to person, oriented to place , oriented to time, oriented to situation, CN II-XII grossly intact. ABSENT: motor sensory deficit Psychiatric exam: PRESENT: appropriate affect, normal mood. ABSENT: homicidal ideation, suicidal ideation Skin exam: PRESENT: dry, intact, warm. ABSENT: cyanosis, rash Results Laboratory Results: 12/21/17 04:27 12/19/17 06:40 12/21/17 04:27 WBC 8.9 RBC 3.25 L Hgb 10.3 L Hct 30.3 L MCV 93 MCH 31.8 MCHC 34.2 RDW 12.4 Plt Count 131 L 12/19/17 12/19/17 12/19/17 00:30 00:30 06:40 Creatine Kinase 146 H 244 H CK-MB (CK-2) 1.24 Troponin I < 0.012 12/19/17 12/19/17 12/19/17 06:40 12:47 12:47 Creatine Kinase 228 H CK-MB (CK-2) 1.70 1.39 Troponin I < 0.012 < 0.012 Impressions: Ankle X-Ray 12/18/17 17:32 IMPRESSION: There is evidence of right posterior malleolar and medial malleolar fracture with comminuted fracture distal right fibula. Posterolateral dislocation of the right ankle. Plantar calcaneal bone spur. Qualifiers - * PATEINT BEING DISCHARGED WITH ANY OF THE FOLLOWING DIAGNOSIS?: No VTE patient discharged on overlapping Therapy?: Yes Plan Discharge Plan: Patient has progressed appropriate throughout hospital course. She will continue nonweightbearing in the right lower extremity. Plan will be for follow -up in 7 days for wound check and will obtain radiographs at that time. Patient will be discharged on Xarelto for DVT prophylaxis along with clindamycin for bacterial prophylaxis given the open nature of her fracture. Patient is to call the office for any questions and concerns including increasing pain, redness, temperature greater than 101.5. Patient was read the discharge instructions understood the discharge instructions and is orthopedically stable for discharge to home on 12/21/17.
[2017-12-21] MEDS: PREGABALIN 75 MG CAPSULE PO SCH (10:05)
[2017-12-21] MEDS: PRENATAL VITAMIN W DHA CAPSULE PO SCH (10:05)
[2017-12-21] MEDS: SENNOSIDES/DOCUSATE 8.6-50 MG 1 EACH TABLET PO SCH (10:05)
[2017-12-21] MEDS: CITALOPRAM HYDROBROMIDE 20 MG TABLET PO SCH (10:05)
[2017-12-21] MEDS ORDERED: CEFAZOLIN SODIUM 2 GM in NORMAL SALINE 100 ML IV SCH (12:00)
[2017-12-21 12:43] VITALS: BP 94/52
== END 2017-12-21 12:45 | disposition home health service (06) | DRG 494 ==
LOC: ER 17:28 → EH 19:52 → 4N 23:04
PROVIDERS: ADMIT Orthopaedic Surgery; ATTEND Orthopaedic Surgery
PROC: 3E0234Z Introduction of Serum, Toxoid and Vaccine into Muscle, Percutaneous Approach (ICD-10-PCS; 2017-12-18)
PROC: 0QSG04Z Reposition Right Tibia with Internal Fixation Device, Open Approach (ICD-10-PCS; principal; 2017-12-18 20:45)
PROC: 0QSJ04Z Reposition Right Fibula with Internal Fixation Device, Open Approach (ICD-10-PCS; 2017-12-18 20:45)
DX: S82.851B Displaced trimalleolar fracture of right lower leg, initial encounter for open fracture type I or II (principal); W10.9XXA Fall (on) (from) unspecified stairs and steps, initial encounter; K21.9 Gastro-esophageal reflux disease without esophagitis; I49.3 Ventricular premature depolarization; Y93.9 Activity, unspecified; Y92.9 Unspecified place or not applicable; Z79.01 Long term (current) use of anticoagulants; Z87.891 Personal history of nicotine dependence; Z23 Encounter for immunization
CPT/HCPCS: 01480; 36415; 80048; 80053; 82550; 82553; 83735; 84484; 85025; 85027; 85610; 85730; 90471; 90715; 93005; 93010; 94799; 96361; 96365; 96375; 96376; 99285; C1713; C1769; J0131; J0295; J0330; J0690; J2250; J2270; J2370; J2405; J2704; J3010; J3490; J7030; J7120

== ENCOUNTER 2018-03-22 06:10 | Day surgery (SDC) | payer BC ==
[2018-03-15 09:40] LABS: HEMATOCRIT 40.8 % (36.0-47.0); HEMOGLOBIN 13.8 g/dL (12.0-15.5); MEAN CORPUSCULAR HEMOGLOBIN 30.5 pg (27.0-33.4); MEAN CORPUSCULAR HGB CONC 33.8 g/dL (32.0-36.0); MEAN CORPUSCULAR VOLUME 90 fl (80-97); PLATELET COUNT 163 10^3/uL (150-450); RED BLOOD COUNT 4.52 10^6/uL (3.72-5.28); RED CELL DISTRIBUTION WIDTH 14.6 % (11.5-14.0); WHITE BLOOD COUNT 6.7 10^3/uL (4.0-10.5)
[2018-03-15 10:18] LABS: ANION GAP 14 (5-19); BLOOD UREA NITROGEN 18 mg/dL (7-20); CALCIUM 9.3 mg/dL (8.4-10.2); CARBON DIOXIDE 26 mmol/L (22-30); CHLORIDE 102 mmol/L (98-107); GLUCOSE 101 mg/dL (75-110); POTASSIUM 4.7 mmol/L (3.6-5.0); SODIUM 141.5 mmol/L (137-145)
[2018-03-15 10:34] LABS: APPEARANCE,URINE CLEAR; BILIRUBIN,URINE NEGATIVE (NEGATIVE); COLOR,URINE YELLOW; GLUCOSE, URINE NEGATIVE (NEGATIVE); KETONES,URINE NEGATIVE (NEGATIVE); LEUKOCYTE ESTERASE,URINE NEGATIVE (NEGATIVE); NITRITE,URINE NEGATIVE (NEGATIVE); PROTEIN,URINE NEGATIVE (NEGATIVE); URINE SPECIFIC GRAVITY 1.021
--- NOTE | 2018-03-15 11:47 | RADIOLOGY REPORT (SQ) ---
EXAM DESCRIPTION: CHEST PA/LATERAL COMPLETED DATE/TIME: 03/15/2018 9:48 am REASON FOR STUDY: PRE-OP COMPARISON: None. EXAM PARAMETERS: NUMBER OF VIEWS: two views TECHNIQUE: Digital Frontal and Lateral radiographic views of the chest acquired. RADIATION DOSE: NA LIMITATIONS: none FINDINGS: LUNGS AND PLEURA: No opacities, masses or pneumothorax. No pleural effusion. MEDIASTINUM AND HILAR STRUCTURES: No masses or contour abnormalities. HEART AND VASCULAR STRUCTURES: Heart normal size. No evidence for failure. BONES: No acute findings. HARDWARE: Clips right upper quadrant post cholecystectomy. OTHER: No other significant finding. IMPRESSION: NO SIGNIFICANT RADIOGRAPHIC FINDING IN THE CHEST. TECHNICAL DOCUMENTATION: JOB ID: [id number] [employer]- All Rights Reserved Reading location - IP/workstation name: [email or web address]
--- NOTE | 2018-03-15 19:42 | EKG REPORT ---
SEVERITY:- OTHERWISE NORMAL ECG - SINUS RHYTHM BORDERLINE LEFT AXIS DEVIATION : Confirmed by: Alona Olivares MD 15-Mar-2018 19:42:07
[~2018-03-22 06:10] MED LIST changes: +BUPIVACAINE HCL 0.5 % INJ/PF 30 ML SDV ONE; +CEFAZOLIN 2 GM/D5W RTU 2 GM/50 ML RTUPB IV PRN; +CEFAZOLIN SODIUM 2 GM in DEXTROSE 5%-WATER 100 ML IV PRN; -GLYCOPYRROLATE INJ 0.4 MG/2 ML VIAL ONE; +LACTATED RINGERS 1000 ML IV PRN; +LIDOCAINE 0.5% INJ-PF (5 MG/ML) 50 ML SDV SUBCUT PRN; -LIDOCAINE 2% INJ-PF (20 MG/ML) 2 ML AMPUL ONE; -PHENYLEPHRINE HCL INJ/PF 10 MG/1 ML SDV ONE; -SUCCINYLCHOLINE CHLORIDE INJ 200 MG/10 ML VIAL ONE
[2018-03-22] MEDS ORDERED: ACETAMINOPHEN 0 MG/0 ML RTUPB IV ONE (06:41)
[2018-03-22] MEDS ORDERED: FENTANYL CITRATE INJ/PF 100 MCG/2 ML AMPUL ONE ×2 (06:41→08:39)
[2018-03-22] MEDS ORDERED: PROPOFOL INJ 200 MG/20 ML VIAL IV ONE (06:41)
[2018-03-22] MEDS ORDERED: LIDOCAINE 2% INJ-PF (20 MG/ML) 10 ML AMPUL ONE (06:41)
[2018-03-22] MEDS ORDERED: DEXAMETHASONE SOD PHOSPHATE INJ 4 MG/1 ML VIAL ONE (06:41)
[2018-03-22] MEDS ORDERED: MIDAZOLAM 2 MG/2 ML INJ ONE (06:41)
[2018-03-22] MEDS ORDERED: SCOPOLAMINE HYDROBROMIDE 1.5 MG PATCH.TD72 ONE (07:36)
[2018-03-22] MEDS ORDERED: BUPIVACAINE HCL/DEX-WATER/PF 15 MG/2 ML AMPULE ONE (07:37)
[2018-03-22] MEDS ORDERED: LIDOCAINE 1% INJ-PF (10 MG/ML) 30 ML SDV ONE (07:47)
[2018-03-22] MEDS ORDERED: ONDANSETRON HCL INJ/PF 4 MG/2 ML SDV IV PRN ×2 (08:11→08:33)
[2018-03-22] MEDS ORDERED: MEPERIDINE HCL/PF INJ 25 MG/1 ML DISP.SYRIN IV PRN (08:11)
[2018-03-22] MEDS ORDERED: FENTANYL CITRATE INJ/PF 100 MCG/2 ML AMPUL IV PRN ×4 (08:11→08:33)
[2018-03-22] MEDS ORDERED: DIPHENHYDRAMINE HCL 50 MG/ML VIAL IV PRN (08:11)
[2018-03-22] MEDS ORDERED: MORPHINE SULFATE 10 MG/ML INJ IV PRN (08:11)
[2018-03-22] MEDS ORDERED: PROMETHAZINE HCL INJ 25 MG/1 ML VIAL IV PRN ×2 (08:11)
[2018-03-22] MEDS ORDERED: HYDROCODONE/ACETAMINOPHEN 5-325 MG TABLET PO PRN (08:33)
--- NOTE | 2018-03-22 09:16 | RADIOLOGY REPORT (SQ) ---
EXAM DESCRIPTION: ANKLE RIGHT AP/LATERAL; NO CHG FLUORO COMPLETED DATE/TIME: 03/22/2018 8:57 am REASON FOR STUDY: RIGHT ANKLE HARDWARE REMOVAL S82.851B DISPLACED TRIMALLEOL FX R LOW LEG, INIT FOR OPN FX M25.571 PAIN IN RIGHT ANKLE AND JOINTS OF RIGHT FOOT COMPARISON: Intra operative imaging right ankle 10/19/2017 FLUOROSCOPY TIME: 20 seconds 2 digital radiographic images saved to PACS. TECHNIQUE: Intra-operative images acquired during surgical procedure to evaluate progress. NUMBER OF IMAGES: 2 digital C-arm images LIMITATIONS: None. FINDINGS: 10 digital C-arm images are submitted. There has been removal of the syndesmosis screws a cross the distal tibiofibular joint. Other hardware along the distal fibula and medial malleolus unc hanged. Please see the operative report for further details IMPRESSION: Intra procedural imaging and fluoro COMMENT: Quality ID [id number]: Final reports for procedures using fluoroscopy that document radiation exp osure indices, or exposure time and number of fluorographic images (if radiation exposure indices are not available) Please consult full operative report of the attending physician for description of the procedure. TECHNICAL DOCUMENTATION: JOB ID: [id number] [employer]- All Rights Reserved Reading location - IP/workstation name: [email or web address]
--- NOTE | 2018-03-22 09:16 | RADIOLOGY REPORT (SQ) ---
EXAM DESCRIPTION: ANKLE RIGHT AP/LATERAL; NO CHG FLUORO COMPLETED DATE/TIME: 03/22/2018 8:57 am REASON FOR STUDY: RIGHT ANKLE HARDWARE REMOVAL S82.851B DISPLACED TRIMALLEOL FX R LOW LEG, INIT FOR OPN FX M25.571 PAIN IN RIGHT ANKLE AND JOINTS OF RIGHT FOOT COMPARISON: Intra operative imaging right ankle 10/19/2017 FLUOROSCOPY TIME: 20 seconds 2 digital radiographic images saved to PACS. TECHNIQUE: Intra-operative images acquired during surgical procedure to evaluate progress. NUMBER OF IMAGES: 2 digital C-arm images LIMITATIONS: None. FINDINGS: 10 digital C-arm images are submitted. There has been removal of the syndesmosis screws a cross the distal tibiofibular joint. Other hardware along the distal fibula and medial malleolus unc hanged. Please see the operative report for further details IMPRESSION: Intra procedural imaging and fluoro COMMENT: Quality ID [id number]: Final reports for procedures using fluoroscopy that document radiation exp osure indices, or exposure time and number of fluorographic images (if radiation exposure indices are not available) Please consult full operative report of the attending physician for description of the procedure. TECHNICAL DOCUMENTATION: JOB ID: [id number] [employer]- All Rights Reserved Reading location - IP/workstation name: [email or web address]
[2018-03-22 10:18] VITALS: BP 122/89
--- NOTE | 2018-04-02 10:47 | Discharge Summary ---
Discharge Summary (SDC) - Discharge Final Diagnosis: Right ankle fracture dislocation Date of Surgery: 03/22/18 Discharge Date: 03/22/18 Condition: Good Treatment or Instructions: Schedule Follow Up w/ Dr. Umesh No @ [facility] to be seen in 10-14 days or as scheduled [place]: [place]: [place]: May remove dressing on postop day #3, keep incision covered and dry. Ice and elevate May begin weightbearing as tolerated. Stool softener of choice when on pain medication. Prescriptions: Hydrocodone/Acetaminophen [[place] 5-325 mg Tablet] 1 tab PO Q6 PRN #10 tablet PRN Reason: Referrals: ALEXA HORN PA-C [Primary Care Provider] - Discharge Diet: As Tolerated Respiratory Treatments at Home: Deep Breathing/Coughing, Incentive Spirometer Discharge Activity: No Lifting Over 10 Pounds, No Lifting/Push/Pulling Report the Following to Your Physician Immediately: Fever over 101 Degrees, Unusual Bleeding, Redness, Swelling, Warmth
--- NOTE | 2018-04-02 10:47 | Operative Report ---
Operative Report DATE OF SURGERY: 03/22/18 PREOPERATIVE DIAGNOSIS: Status post ORIF right ankle with syndesmotic fixation, painful hardware POSTOPERATIVE DIAGNOSIS: Same OPERATION: Removal of hardware right ankle SURGEON: CELINA MATTHEW ANESTHESIA: LMAC COMPLICATIONS: None ESTIMATED BLOOD LOSS: Minimal PROCEDURE: Indication for above procedure: 62-year-old female who sustained an open fracture dislocation of her right ankle underwent successful open reduction internal fixation with syndesmotic fixation. Patient progressed appropriately but continued to have some mild discomfort along the screw sites of the syndesmotic screws and thus prior to hardware breakage decision was made to proceed with operative intervention and screw removal. Risks and benefits were explained to the patient patient verbalized understanding consented for the procedure. Procedure In Detail: Patient was seen and evaluated in the preoperative holding area. The right lower extremity was initialized and marked. Patient received 2g of Ancef IV for bacterial prophylaxis. Patient was taken back to the operative room where transferred to the operative table and placed under anesthesia. Once they were adequately anesthetized a nonsterile tourniquet was placed on the right lower extremity. A surgical team debriefing was performed ensuring all instrumentation was available, the surgical procedure was discussed with possible concerns reviewed. The upper extremity was prepped with ChloraPrep and draped in a sterile fashion. A timeout was done identifying correct patient, procedure and extremity everyone in attendance agree with this and verbalized no concerns. Local block was performed utilizing 10 cc of 1% lidocaine without epinephrine. The extremity was exsanguinated the tourniquet was inflated to 300 mmHg. Via C-arm fluoroscopy the site of the 2 syndesmotic screws was identified. Small stab incision was made overlying the screw heads. The screws were then removed there is no evidence of hardware breakage. C-arm fluoroscopy was obtained confirming stability of the syndesmosis. There is no evidence of tibia -fibula clear space widening on external rotation stress. Wound was copiously irrigated with normal saline. Skin was closed with interrupted 3-0 nylon sutures and a soft dressing was placed. Tourniquet was deflated. Patient had good peripheral perfusion. Sponge counts, instrument counts, needle counts counts were correct. Patient was then awoken from anesthesia. Transferred from the operating room table to the operating room stretcher. There was no intraoperative complications patient tolerated procedure well stable to PACU. Postoperative plan: Patient will begin weightbearing as tolerated. We will proceed with suture removal at follow-up.
== END 2018-03-22 10:20 | disposition home or self-care (01) ==
LOC: OROUT 06:10
PROVIDERS: ATTEND Orthopaedic Surgery
DX: S82.851B Displaced trimalleolar fracture of right lower leg, initial encounter for open fracture type I or II (principal); X58.XXXA Exposure to other specified factors, initial encounter; M25.571 Pain in right ankle and joints of right foot; Z79.899 Other long term (current) drug therapy
CPT/HCPCS: 93005; 36415; 85027; 80048; 81001; 73600; 71046; 93010; 20680; J2250; J3490 ×3; J1100; J3010; J2704; J0690; 01480; J0131